=== PATIENT | female | born 1960 | race Two or more races ===

== ENCOUNTER 2021-06-17 12:30 | Inpatient (IN) | payer OTHER ==
[~2021-06-17] VITALS: Ht 157.5 cm; Wt 74.4 kg
[2021-06-18] MEDS ORDERED: METFORMIN HCL500 M3 PO (07:54)
[2021-06-18] MEDS ORDERED: LEVO-T25 MCG PO (07:54)
[2021-06-18] MEDS ORDERED: ZESTRIL2.5 MG PO (07:55)
[2021-06-20] MEDS ORDERED: PERCOCET 5-3251 EACH PO (12:08)
[2021-06-20] MEDS ORDERED: AMOX-CLAV 875-1 EACH PO (12:08)
[2021-06-20] MEDS ORDERED: NEURONTIN800 MG PO (12:08)
[2021-06-20] MEDS ORDERED: MEDROLPACK PO (12:08)
[2021-06-20] MEDS ORDERED: COLACE100 MG PO (12:08)
== END 2021-06-22 11:29 | DRG 455 ==
LOC: PED 06-20 07:41 → O/R 06-20 07:41 → SURH 06-20 12:30 → PED 06-20 16:57 → SURH 06-20 19:00 → PED 06-22 11:29
PROVIDERS: ADMIT Orthopaedic Surgery Orthopaedic Surgery of the Spine; ATTEND Orthopaedic Surgery Orthopaedic Surgery of the Spine
PROC: 0SG3071 Fusion of Lumbosacral Joint with Autologous Tissue Substitute, Posterior Approach, Posterior Column, Open Approach (ICD-10-PCS; 2021-06-20)
PROC: 00NY0ZZ Release Lumbar Spinal Cord, Open Approach (ICD-10-PCS; 2021-06-20)
PROC: 0QB30ZZ Excision of Left Pelvic Bone, Open Approach (ICD-10-PCS; 2021-06-20)
PROC: 07DR0ZZ Extraction of Iliac Bone Marrow, Open Approach (ICD-10-PCS; 2021-06-20)
PROC: 0SG30AJ Fusion of Lumbosacral Joint with Interbody Fusion Device, Posterior Approach, Anterior Column, Open Approach (ICD-10-PCS; principal; 2021-06-20 19:00)
DX: M48.062 Spinal stenosis, lumbar region with neurogenic claudication (principal); M48.07 Spinal stenosis, lumbosacral region; M43.17 Spondylolisthesis, lumbosacral region; M51.37 Other intervertebral disc degeneration, lumbosacral region; I10 Essential (primary) hypertension; E03.9 Hypothyroidism, unspecified; E11.9 Type 2 diabetes mellitus without complications

== ENCOUNTER 2021-09-12 13:55 | Inpatient (IN) | payer OTHER ==
[~2021-09-12] VITALS: Ht 157.5 cm; Wt 74.4 kg
[~2021-09-12 13:55] MED LIST: AMOX-CLAV 875-1 EACH PO; COLACE100 MG PO; LEVO-T25 MCG PO; MEDROLPACK PO; METFORMIN HCL500 M3 PO; NEURONTIN800 MG PO; PERCOCET 5-3251 EACH PO; ZESTRIL2.5 MG PO
[2021-09-16] MEDS ORDERED: COLACE100 MG PO (15:41)
[2021-09-16] MEDS ORDERED: NEURONTIN800 MG PO (15:42)
[2021-09-16] MEDS ORDERED: MEDROLPACK PO (15:42)
[2021-09-16] MEDS ORDERED: AMOX-CLAV 875-1 EAC1 PO (15:42)
[2021-09-16] MEDS ORDERED: PERCOCET 5-3251 EACH PO (15:42)
== END 2021-09-18 22:34 | DRG 516 ==
LOC: CIR.AMB 09-16 08:25 → SURH 09-16 08:50 → EDSTATUS 09-16 08:50 → SURH 09-16 08:56 → SURG 09-16 11:00 → O/R 09-16 11:00 → SURH 09-16 18:00 → SURG 09-16 20:57
PROVIDERS: ADMIT Orthopaedic Surgery Orthopaedic Surgery of the Spine; ATTEND Orthopaedic Surgery Orthopaedic Surgery of the Spine
PROC: 0SP004Z Removal of Internal Fixation Device from Lumbar Vertebral Joint, Open Approach (ICD-10-PCS; 2021-09-16)
PROC: 0SH004Z Insertion of Internal Fixation Device into Lumbar Vertebral Joint, Open Approach (ICD-10-PCS; 2021-09-16)
PROC: 07DR0ZZ Extraction of Iliac Bone Marrow, Open Approach (ICD-10-PCS; 2021-09-16)
PROC: 01NB0ZZ Release Lumbar Nerve, Open Approach (ICD-10-PCS; principal; 2021-09-16 18:00)
DX: M96.1 Postlaminectomy syndrome, not elsewhere classified (principal); M96.0 Pseudarthrosis after fusion or arthrodesis; M48.061 Spinal stenosis, lumbar region without neurogenic claudication; M54.16 Radiculopathy, lumbar region; E11.9 Type 2 diabetes mellitus without complications; E03.8 Other specified hypothyroidism; E78.5 Hyperlipidemia, unspecified

== ENCOUNTER 2022-11-05 15:49 | Inpatient (IN) | payer OTHER ==
[~2022-11-05] VITALS: Ht 157.5 cm; Wt 74.4 kg
[~2022-11-05 15:49] MED LIST changes: +AMOX-CLAV 875-1 EAC1 PO
[2022-11-11] MEDS ORDERED: PERCOCET 5-3251 EACH PO (09:41)
[2022-11-11] MEDS ORDERED: MEDROLPACK PO (09:41)
[2022-11-11] MEDS ORDERED: NEURONTIN800 MG PO (09:42)
[2022-11-11] MEDS ORDERED: AMOX-CLAV 875-1 EACH PO (09:42)
[2022-11-11] MEDS ORDERED: COLACE100 MG PO (09:43)
== END 2022-11-13 15:58 | DRG 455 ==
LOC: O/R 11-11 05:45 → SURG 11-11 05:45 → SURH 11-11 08:30 → O/R 11-11 13:33 → SURG 11-11 13:44
PROVIDERS: ADMIT Orthopaedic Surgery Orthopaedic Surgery of the Spine; ATTEND Orthopaedic Surgery Orthopaedic Surgery of the Spine
PROC: 0SG0071 Fusion of Lumbar Vertebral Joint with Autologous Tissue Substitute, Posterior Approach, Posterior Column, Open Approach (ICD-10-PCS; 2022-11-11)
PROC: 0SP304Z Removal of Internal Fixation Device from Lumbosacral Joint, Open Approach (ICD-10-PCS; 2022-11-11)
PROC: 0ST20ZZ Resection of Lumbar Vertebral Disc, Open Approach (ICD-10-PCS; 2022-11-11)
PROC: 0QB30ZZ Excision of Left Pelvic Bone, Open Approach (ICD-10-PCS; 2022-11-11)
PROC: 07DR0ZZ Extraction of Iliac Bone Marrow, Open Approach (ICD-10-PCS; 2022-11-11)
PROC: 4A12X4Z Monitoring of Cardiac Electrical Activity, External Approach (ICD-10-PCS; 2022-11-11)
PROC: XRGB0R7 Fusion of Lumbar Vertebral Joint using Custom-Made Anatomically Designed Interbody Fusion Device, Open Approach, New Technology Group 7 (ICD-10-PCS; principal; 2022-11-11 10:15)
DX: M43.16 Spondylolisthesis, lumbar region (principal); M48.062 Spinal stenosis, lumbar region with neurogenic claudication; E11.9 Type 2 diabetes mellitus without complications; M41.56 Other secondary scoliosis, lumbar region; Z79.84 Long term (current) use of oral hypoglycemic drugs